=== PATIENT | male | born 1950 | race Two or more races ===

== ENCOUNTER 2017-03-06 17:31 | Emergency (ER) | payer MEDICARE, OTHER ==
[~2017-03-06] VITALS: Ht 172.7 cm; Wt 81.6 kg
[2017-03-06 17:42] VITALS: BP 184/91
== END 2017-03-06 18:29 | disposition left against medical advice (07) ==
LOC: ER 17:39
DX: M25.512 Pain in left shoulder (principal); V49.9XXA Car occupant (driver) (passenger) injured in unspecified traffic accident, initial encounter; Y93.89 Activity, other specified; Y92.89 Other specified places as the place of occurrence of the external cause; Y99.8 Other external cause status; Z53.21 Procedure and treatment not carried out due to patient leaving prior to being seen by health care provider